=== PATIENT | female | born 1940 | race Caucasian/White ===

== ENCOUNTER → 2017-11-27 | Outpatient (CLI) | payer OTHER ==
[~2017-11-27] MED LIST: ALLOPURINOL 10100 M1 PO; ASPIR 8181 M1 PO; CALCIUM 500 +1 EAC5 PO; CELEBREX 200 M200 M1 PO; CO Q-10100 MG PO; COZAAR 50 MG TA50 M2 PO; DIGOXIN250 MCG PO; FISH OIL 1,001000 M2 PO; FLECAINIDE ACET50 M1 PO; KLOR-CON 1010 MEQ PO; LASIX 20 MG TAB20 MG PO; LOPRESSOR50 MG PO; LOPRESSOR50 PO; OMEGA-31000 M1 PO; PEPCID40 MG PO; SIMVASTATIN40 MG PO; SYNTHROID25 MCG PO; TIMOLOL GL0.5 %/5 M1 INTRAOCULR; TUMS PO; UNICOMPLEX M TA1 TA1 PO; XALATAN2.5 ML OPHTHALMIC; XARELTO15 MG PO; XARELTO20 MG PO
== END ==
LOC: NUC 08:33
DX: I48.92 Unspecified atrial flutter (principal); I11.0 Hypertensive heart disease with heart failure; I50.22 Chronic systolic (congestive) heart failure

== ENCOUNTER → 2017-11-29 | Outpatient (CLI) | payer OTHER ==
[~2017-11-29] VITALS: Ht 165.1 cm; Wt 95.3 kg
--- NOTE | ~2017-11-29 | EKG ---
[address] [address] ELECTROCARDIOGRAM REPORT Name: VERITO WILLIAMSON Room #: [id number] Admission: 11/29/17 Attend Phys: Tobias Workman MD Discharge: Date of : 40 Report #: [id number] THIS REPORT FOR: //name// [facility] Test Date: 2017-11-29 Test Time: 09:30:52 Pat Name: VERITO WILLIAMSON Department: Room: Gender: F Librarian Head: Ryan OLMEDO : 1940 Requested By: Tobias Workman Order Number: [id number] MD: Measurements Intervals [place] Rate: 71 P: 67 IL: 251 QRS: -50 QRSD: 134 T: 127 QT: 426 QTc: 463 Interpretive Statements Sinus rhythm Prolonged IL interval Left bundle branch block Compared to ECG 09/15/2017 09:48:39 First degree AV block now present Left bundle-branch block now present T-wave abnormality no longer present [email or web address] By: 0930 0930 Epiphany Epiphany, /EPI
--- NOTE | ~2017-11-29 | P ---
[facility] [place] [address] PROCEDURE REPORT Name: VERITO WILLIAMSON Room #: REG Eric Malik.#: [id number] Admission: 11/29/17 Attend Phys: Tobias Workman MD Discharge: Date of : 40 Report #: [id number] THIS REPORT FOR: //name// CC: Enrrique Krueger Chilo PREOPERATIVE DIAGNOSIS: Atrial fibrillation. POSTOPERATIVE DIAGNOSIS: Atrial fibrillation. DESCRIPTION OF PROCEDURE: The patient underwent informed consent. She was then sedated by the Anesthesiology service. Once sedated, she underwent successful 200 joule synchronized cardioversion with rastafari of sinus rhythm. There were no complications. CONCLUSIONS: Successful cardioversion. <ELECTRONICALLY SIGNED> By: Tobias Workman MD 12/12/17 1642 [id number] 1312 Tobias Workman MD /nt
[2017-11-29 07:50] VITALS: BP 108/67
[2017-11-29 08:31] LABS: HEMATOCRIT 32.6 % (37.0-47.0); HEMOGLOBIN 10.9 gm/dL (12.0-15.0); MCH 30.7 pg (26.0-34.0); MCHC 33.4 g/dL (28.0-37.0); MCV 91.8 fL (80.0-100.0); RBC 3.55 mil/uL (4.20-5.00); RDW 16.9 % (10.5-14.5); WBC 6.2 thou/uL (4.0-11.0)
[2017-11-29 08:37] LABS: CALCIUM 9.4 mg/dL (8.5-10.1); CREATININE 1.6 mg/dL (0.6-1.0); POTASSIUM 3.7 mmol/L (3.5-5.1)
[2017-11-29 08:42] LABS: ALBUMIN 3.3 g/dL (3.4-5.0); TOTAL BILIRUBIN 0.8 mg/dL (<0.1-1.0); TOTAL PROTEIN 6.4 g/dL (6.4-8.2)
[2017-11-29 08:44] LABS: APTT 39.5 Seconds (24.5-32.8); INR 1.8
== END | disposition home or self-care (01) ==
LOC: CATH 07:21
PROVIDERS: Internal Medicine Cardiovascular Disease
DX: I48.91 Unspecified atrial fibrillation (principal); I10 Essential (primary) hypertension; H40.9 Unspecified glaucoma; E78.5 Hyperlipidemia, unspecified; M10.9 Gout, unspecified; Z90.710 Acquired absence of both cervix and uterus; Z87.442 Personal history of urinary calculi; Z82.49 Family history of ischemic heart disease and other diseases of the circulatory system; Z88.6 Allergy status to analgesic agent; Z79.82 Long term (current) use of aspirin; Z79.899 Other long term (current) drug therapy
CPT/HCPCS: 62110; 62900